=== PATIENT | male | born 1945 | race African-American/Black ===

== ENCOUNTER 2017-12-11 08:56 | Observation (INO) ==
[2017-12-11] MEDS ORDERED: 0.9 % Sodium Chloride 1,000 ML IVC ONE (09:12)
--- NOTE | 2017-12-11 09:24 | Emergency Department Note ---
Disposition Clinical Impression: Prostate cancer, Syncope and collapse, Lung nodule Hypertension Qualifiers: Hypertension type: unspecified Qualified Code(s): I10 - Essential (primary) hypertension Disposition: Admitted As Inpatient Condition: Fair Time of Disposition: 12:37 Syncope HPI - General Chief Complaint: ED Syncope Stated Complaint: Passed Out Time Seen by Provider: 12/11/17 09:10 Source: patient, family, EMS Limitations: no limitations Nursing Notes Reviewed: Yes Vital Signs Reviewed: Yes - History of Present Illness HPI Narrative: 72-year-old male history of hypertension on atenolol, prostate cancer and radiation treatments, has had 30 treatments. Treatment today, he was at the gym today after he had run around the treadmill, he went down to weight machine and was doing push Downs, then he passed out. His was nearby and she came over and they were laying him down on the ground, she thinks he was unconscious for maybe 30 seconds to minute. He denies any chest pain but when he will when he sat back up he was very dizzy and lightheaded. He denies history of any similar episodes. Denies any chest pain at this time or abdominal pain. Pt Subjective Complaint: loss of consciousness Onset (ago): hour(s) Number of episodes: 1 Duration: second(s) Prodromal Symptoms: lightheaded Witnessed: yes - by bystander Context: during exertion Injuries Sustained Associated with Event: none Current Symptoms: lightheaded History: none Treatments prior to arrival: none Associated trauma secondary to event: Yes - Related Data Home Medications Medication Instructions Recorded Confirmed Amlodipine Besylate 10 mg PO DAILY 07/02/17 12/11/17 Atenolol [Tenormin] 25 mg PO DAILY 07/02/17 12/11/17 Lisinopril [Zestril] 40 mg PO DAILY 07/02/17 12/11/17 Naproxen Sodium [Aleve] 220 mg PO AD PRN 07/02/17 12/11/17 Calcium Polycarbophil [Fiber 625 mg PO DAILY 12/11/17 12/11/17 Laxative] Previous Rx's Medication Instructions Recorded Bisacodyl [Dulcolax] 10 mg PO DAILY #2 tablet 10/17/17 Venlafaxine XR (24 HR) [Effexor XR] 75 mg PO DAILY #30 cap.er.24h 10/23/17 Vitamin E 1,000 unit PO DAILY #30 capsule 11/13/17 Allergies Allergy/AdvReac Type Severity Reaction Status Date / Time No Known Allergies Allergy Verified 07/02/17 13:08 All systems ED: reviewed and negative except as stated. Review of Systems: As Per HPI Constitutional: Denies: fever Eyes: Denies: eye pain ENT ED: Denies: ear pain Cardiovascular: Denies: chest pain Respiratory: Denies: cough Gastrointestinal: Denies: abdominal pain, nausea Genitourinary: Denies: urgency Musculoskeletal: Denies: back pain, neck pain Integumentary: Denies: rash Neurological: Reports: as per HPI. Denies: headache, weakness Psychiatric: Denies: anxiety Endocrine: Denies: fatigue Past Medical History - Past Medical History Attestation: Yes The following information was validated with the patient. Source: patient Medical history: Reports: hypertension, kidney stones Psychiatric history: Reports: no psych history - Social History Smoking Status: Never smoker Smokeless Tobacco Status: No Alcohol use: Reports: none Drug use: Reports: none Physical Exam Constitutional: NAD, sinus bradycardia Eyes: PERRLA, sclera anicteric ENT & Mouth: MMM Neck: normal inspection, neck is supple Resp: CTA bilaterally, no resp distress CV: bradycardia no murmurs no peripheral edema GI: normal inspection, soft, no guarding or rigidity Neuro: A&O3, CNII-XII grossly intact, BEAVERS Skin: on limited exam, skin intact with no rashes or lesions - General Limitations: no limitations General appearance: alert Course Course Narrative: 72-year-old male with hypertension and prostate cancer with radiation treatments had a syncopal episode no trauma, was lowered to the ground, but he is sinus bradycardia, after a few minutes, he actually gets diaphoretic and is heart rate and blood pressure dropped into the 90s systolic and heart rate into the 40s and 50s, it appears to be sinus bradycardia with no block, but will give basic lab work CBC BMP, pads on the patient's chest, also d-dimer given syncope basic lab work. - Reevaluation(s) Reevaluation #1: 72-year-old male with syncope, symptomatically bradycardia, EKG with subtle ischemic changes, troponin negative, sentences episode of near-syncope in the emergency department and bradycardia, his heart rate about 61 blood pressures been stable, patient is in no acute distress with cardiac pads on, given elevated d-dimer 15,000 with a was likely reactive or secondary to radiation, the patient did get a CTA that was negative for pulmonary embolus, but with concerns for 2 episodes of syncope in a 72-year-old gentleman further workup was indicated patient was admitted to in stable condition Time: 12:36 Vital Signs Temperature 98.6 F 12/11/17 09:01 Pulse Rate 65 12/11/17 09:01 Respiratory Rate 16 12/11/17 09:01 Blood Pressure 121/77 12/11/17 09:01 O2 Sat by Pulse Oximetry 100 12/11/17 09:01 Temperature 98.6 F 12/11/17 09:01 Pulse Rate 74 12/11/17 11:56 Respiratory Rate 74 12/11/17 11:56 Blood Pressure 110/68 12/11/17 11:56 O2 Sat by Pulse Oximetry 97 12/11/17 11:56 Oxygen Delivery Oxygen Delivery Room Air Syncope - Differential Diagnosis Likely: pulmonary embolism, dehydration/metabolic disorder, trauma secondary to event - Medical Records Medical records reviewed: Yes I reviewed the patient's medical records. - Lab Data Lab results reviewed: Yes I reviewed the patient's lab results. Result diagrams: 12/11/17 09:25 12/11/17 09:25 Lab Results 12/11/17 12/11/17 12/11/17 Range/Units 09:04 09:25 09:25 WBC 6.2 (4.3-11.1) K/mcL RBC 4.61 (4.19-5.50) M/mcL Hgb 14.2 (12.9-16.9) g/dL Hct 42.4 (37.5-50.1) % MCV 92.0 (83.0-100.0) fL MCH 30.8 (28.0-33.3) pg MCHC 33.5 (31.6-35.5) g/dL RDW 13.2 (11.5-14.5) % Plt Count 214 (140-400) K/mcL MPV 8.8 L (9.4-12.4) fL Immature Gran % 0.3 (0-4) % Seg Neutrophils % 75.8 % Lymphocytes % 15.6 % Monocytes % 7.3 % Eosinophils % 0.8 % Basophils % 0.2 % Neutrophils # 4.7 (1.6-8.9) K/mcL Lymphocytes # 1.0 (0.6-4.6) K/mcL Monocytes # 0.5 (0.0-1.3) K/mcL Eosinophils # 0.1 (0.0-0.6) K/mcL Basophils # 0.0 (0.0-0.2) K/mcL D-Dimer (0-500) ng/mLFEU Sodium 141 (136-145) mEq/L Potassium 4.4 (3.5-5.1) mEq/L Chloride 110 H (98-107) mEq/L Carbon Dioxide 22 L (23-29) mEq/L BUN 24 H (8-23) mg/dL Creatinine 1.10 (0.70-1.30) mg/dL Est GFR ( Amer) > 60 (> 60) Est GFR (Non-Af Amer) > 60 (> 60) BUN/Creatinine Ratio 22 (6-26) Glucose 122 H (70-105) mg/dL POC Glucose 96 H (58-89) Calculated Osmolality 297 (280-300) Calcium 9.3 (8.6-10.3) mg/dL Total Bilirubin 0.5 (0.3-1.0) mg/dL AST 17 (13-39) Units/L ALT 14 (7-52) Units/L Alkaline Phosphatase 55 (34-104) Units/L Troponin I (< 0.04) ng/mL Serum Total Protein 7.2 (6.4-8.9) g/dL Albumin 3.9 (3.5-5.7) g/dL Globulin 3.3 (2.4-3.5) g/dL Albumin/Globulin Ratio 1.2 (1.1-2.2) 12/11/17 12/11/17 Range/Units 09:25 09:25 WBC (4.3-11.1) K/mcL RBC (4.19-5.50) M/mcL Hgb (12.9-16.9) g/dL Hct (37.5-50.1) % MCV (83.0-100.0) fL MCH (28.0-33.3) pg MCHC (31.6-35.5) g/dL RDW (11.5-14.5) % Plt Count (140-400) K/mcL MPV (9.4-12.4) fL Immature Gran % (0-4) % Seg Neutrophils % % Lymphocytes % % Monocytes % % Eosinophils % % Basophils % % Neutrophils # (1.6-8.9) K/mcL Lymphocytes # (0.6-4.6) K/mcL Monocytes # (0.0-1.3) K/mcL Eosinophils # (0.0-0.6) K/mcL Basophils # (0.0-0.2) K/mcL D-Dimer 08487 H (0-500) ng/mLFEU Sodium (136-145) mEq/L Potassium (3.5-5.1) mEq/L Chloride (98-107) mEq/L Carbon Dioxide (23-29) mEq/L BUN (8-23) mg/dL Creatinine (0.70-1.30) mg/dL Est GFR ( Amer) (> 60) Est GFR (Non-Af Amer) (> 60) BUN/Creatinine Ratio (6-26) Glucose (70-105) mg/dL POC Glucose (58-89) Calculated Osmolality (280-300) Calcium (8.6-10.3) mg/dL Total Bilirubin (0.3-1.0) mg/dL AST (13-39) Units/L ALT (7-52) Units/L Alkaline Phosphatase (34-104) Units/L Troponin I < 0.03 (< 0.04) ng/mL Serum Total Protein (6.4-8.9) g/dL Albumin (3.5-5.7) g/dL Globulin (2.4-3.5) g/dL Albumin/Globulin Ratio (1.1-2.2) - Radiology Data Radiology results reviewed: Yes I reviewed the patient's radiology results. Chest X-Ray 12/11/17 09:12 IMPRESSION: 1. No active pulmonary disease. D/ / Jason Silvestre MD / Jason Silvestre MD Interpreting Provider: Jason Silvestre MD Head CT 12/11/17 09:13 IMPRESSION: No acute intracranial abnormality. Diffuse atrophic changes with findings suggesting chronic microvascular ischemia D/ / Atif Husain MD / Atif Husain MD Interpreting Provider: Atif Husain MD Chest CTA 12/11/17 10:40 IMPRESSION: No evidence of pulmonary embolism or acute pulmonary abnormality. Stable multiple noncalcified pulmonary nodules to the right lung with largest measuring 6 mm. These are unchanged since 10/22/2017. Reference Fleischner Society guidelines outlined below for management recommendations. RECOMMENDATIONS: Fleischner Society guidelines for follow-up and management of incidentally detected pulmonary nodules: Multiple Solid Nodules: Nodule size equals 6-8 mm In a low-risk patient, CT at 3-6 months, then consider CT at 18-24 months. In a high-risk patient, CT at 3-6 months, then CT at 18-24 months. - Low risk patients include individuals with minimal or absent history of smoking and other known risk factors. - High risk patients include individuals with a history or smoking or known risk factors. Radiology 2017 http://pubs.rsna.org/doi/full/10.1148/radiol.[email or web address] D/ / 12/11/2017 11:44:07 Hieu Baires MD / leon Interpreting Provider: Hieu Baires MD - EKG Data EKG attestation: Yes I reviewed and interpreted this EKG. EKG shows normal: sinus rhythm Rate: normal (52 bpm NE 190 QRS 85 QTc 4:30)
[2017-12-11 09:34] LABS: Basophils % 0.2 %; Eosinophils # 0.1 K/mcL (0.0-0.6); Eosinophils % 0.8 %; Hematocrit 42.4 % (37.5-50.1); Hemoglobin 14.2 g/dL (12.9-16.9); Immature Granulocytes % 0.3 % (0-4); Lymphocytes % 15.6 %; Mean Corpuscular HGB Conc 33.5 g/dL (31.6-35.5); Mean Corpuscular Hemoglobin 30.8 pg (28.0-33.3); Mean Platelet Volume 8.8 fL (9.4-12.4); Monocytes # 0.5 K/mcL (0.0-1.3); Monocytes % 7.3 %; Neutrophils # 4.7 K/mcL (1.6-8.9); Platelet Count 214 K/mcL (140-400); Red Blood Count 4.61 M/mcL (4.19-5.50); Red Cell Distribution Width 13.2 % (11.5-14.5); Segmented Neutrophils % 75.8 %
--- NOTE | 2017-12-11 09:41 | Emergency Department Note ---
START Narrative - START START: I examined this patient and my medical decision-making was reviewed with the Resident Physician. I agree with the documented findings, disposition and treatment plan as described except to the extent set forth below. 72-year-old male presents emergency room for syncope. Patient has sickle episode while lifting weights at the gym this morning. Patient was seen here in the ER upon arrival. He had a another near syncopal episode while sitting in the bed in the ER. At that time, patient became bradycardic in the low 50s and he became hypotensive in the 80s. He was symptomatic and diaphoretic with this. His EKG showed some nonspecific changes in the lateral high lateral leads. Patient is on atenolol which could be contributing to his bradycardia. We will place him on the pacer pads. He is receiving IV fluid bolus. Patient will need to be admitted and will consult cardiology. He is not having any chest pain. He is being treated for active prostate cancer with radiation therapy. critical care time 35 min spent in management of symptomatic bradycardia and hypotension
[2017-12-11 09:50] LABS: Alanine Aminotransferase 14 Units/L (7-52); Albumin 3.9 g/dL (3.5-5.7); Albumin/Globulin Ratio 1.2 (1.1-2.2); Alkaline Phosphatase 55 Units/L (34-104); Aspartate Amino Transferase 17 Units/L (13-39); BUN/Creatinine Ratio 22 (6-26); Bilirubin,Total 0.5 mg/dL (0.3-1.0); Blood Urea Nitrogen 24 mg/dL (8-23); Calcium 9.3 mg/dL (8.6-10.3); Carbon Dioxide 22 mEq/L (23-29); Chloride 110 mEq/L (98-107); Globulin 3.3 g/dL (2.4-3.5); Glucose 122 mg/dL (70-105); Osmolality,Calculated 297 (280-300); Potassium 4.4 mEq/L (3.5-5.1); Sodium 141 mEq/L (136-145); Total Protein 7.2 g/dL (6.4-8.9); eGFR For African Americans > 60 (> 60); eGFR For Non-African Americans > 60 (> 60)
--- NOTE | 2017-12-11 13:16 | Internal Med History&Physical ---
Date of Encounter: 12/11/17 Time of Encounter: 13:12 Assessment and Plan (1) Hypertension Current visit: Yes Status: Chronic Chronic and appears to be well controlled resume his medication except for atenolol and decreased Norvasc dose Qualifiers: Hypertension type: essential hypertension Qualified Code(s): I10 - Essential (primary) hypertension (2) Prostate cancer Current visit: Yes Status: Acute Patient received radiation 30s cycle no acute issues (3) Syncope and collapse Current visit: Yes Status: Acute Syncope and collapse following exercise at the edge of his symptomatic bradycardia patient is on low doses of atenolol which is being held for now heart rate is back to normal with normal blood pressure was observed in overnight check a [facility] Internal Medicine - H&P: HPI Chief complaint: syncope Admitted From: Emergency Dept Plans for Post Hospital Care: Home History of present illness: Mr. Olivo is a 72 year old male Patient with history of hypertension, on atenolol 25 mg daily, lisinopril 40 mg and Norvasc 10 mg patient also has prostate cancer has had radiation therapy 30 cycles patient was at the gym this morning exercised on the treadmill after that he went over to lifting weight and then felt lightheaded. then passed out the EMS brought him to the emergency room EMS blood pressure recorded 90/40 in the emergency room patient became bradycardia heart rate in the 40s blood pressure low with lightheadedness and diaphoretic given IV fluid . By the time I saw him he was in normal sinus rhythm heart rate 68. Patient denies any chest pain no shortness of breath no prior cardiac event history. Patient will be admitted for observation discontinued the Actonel for now and give time for washout.. CTA of chest negative for PE Past Med Surg Social Fam HX - Past Medical History Medical history: hypertension, kidney stones Psychiatric history: no psych history - Social History Smoking Status: Never smoker Smokeless Tobacco Status: No Alcohol use: none Drug use: none Internal Medicine - H&P: Meds Amlodipine Besylate 10 mg PO DAILY 07/02/17 [History] Atenolol [Tenormin] 25 mg PO DAILY 07/02/17 [History] Lisinopril [Zestril] 40 mg PO DAILY 07/02/17 [History] Naproxen Sodium [Aleve] 220 mg PO AD PRN 07/02/17 [History] Bisacodyl [Dulcolax] 10 mg PO DAILY #2 tablet 10/17/17 [Rx] Venlafaxine XR (24 HR) [Effexor XR] 75 mg PO DAILY #30 cap.er.24h 10/23/17 [Rx] Vitamin E 1,000 unit PO DAILY #30 capsule 11/13/17 [Rx] Calcium Polycarbophil [Fiber Laxative] 625 mg PO DAILY 12/11/17 [History] 3 Allergy/AdvReac Type Severity Reaction Status Date / Time No Known Allergies Allergy Verified 07/02/17 13:08 All Systems PM: A 10-system review of systems was performed and is negative for pertinent findings except as documented above in the HPI. - Constitutional Constitutional: no chills, no fever(s), no night sweats - EENT Eyes: no change in vision, no discharge, no pain, no photophobia Ears: no ear discharge, no ear pain, no tinnitus Nose, mouth and throat: no dysphagia, no nasal discharge, no neck pain, no sore throat - Cardiovascular Cardiovascular ROS IM: syncope - Respiratory Respiratory: no cough, no dyspnea, no wheezing, no excessive phlegm production - Gastrointestinal Gastrointestinal: no abdominal pain, no diarrhea, no hematemesis, no hematochezia, no melena, no nausea, no vomiting - Musculoskeletal Musculoskeletal ROS IM: no numbness, no tingling - Constitutional Vitals: Temp Pulse Resp BP Pulse Ox 98.6 F 74 74 110/68 97 12/11/17 09:01 12/11/17 11:56 12/11/17 11:56 12/11/17 11:56 12/11/17 11:56 - Head Head exam: Present: atraumatic, normocephalic - Eye Eye exam: Present: PERRL, conjuntiva pink, sclera anicteric Pupils: Present: PERRL - Neck Neck exam general surgery: Present: supple, trachea midline. Absent: lymphadenopathy - Respiratory Respiratory exam: Present: CTAB. Absent: accessory muscle use, rales, rhonchi, wheezes - Cardiovascular Cardiovascular exam: Present: RRR, +S1, +S2. Absent: diastolic murmur, gallop, rubs, systolic murmur - GI/Abdominal GI/Abdominal exam: Present: normal bowel sounds, soft, no peritoneal signs. Absent: distended, tenderness - Extremities Exam Extremities exam: Present: warm, radial pulses palpable and symmetrical. Absent : calf tenderness, cyanotic, pedal edema - Neurological Exam Neurological exam: Present: CN II-XII intact, oriented X3, no focal deficits. Absent: pronater drift, facial droop, speech deficit - Skin Skin exam: Present: dry, intact Internal Med - H&P Results - Labs CBC & Chem 7: 12/11/17 09:25 12/11/17 09:25 Labs: Short CBC 12/11/17 Range/Units 09:25 WBC 6.2 (4.3-11.1) K/mcL Hgb 14.2 (12.9-16.9) g/dL Hct 42.4 (37.5-50.1) % Plt Count 214 (140-400) K/mcL Neutrophils # 4.7 (1.6-8.9) K/mcL BMP 12/11/17 09:25 Sodium 141 Potassium 4.4 Chloride 110 H Carbon Dioxide 22 L BUN 24 H Creatinine 1.10 Glucose 122 H Calcium 9.3 Cardiac Enzymes 12/11/17 Range/Units 09:25 Troponin I < 0.03 (< 0.04) ng/mL Liver Function 12/11/17 Range/Units 09:25 Total Bilirubin 0.5 (0.3-1.0) mg/dL AST 17 (13-39) Units/L ALT 14 (7-52) Units/L Alkaline Phosphatase 55 (34-104) Units/L Albumin 3.9 (3.5-5.7) g/dL - Impressions ITS Impressions Chest X-Ray 12/11/17 09:12 IMPRESSION: 1. No active pulmonary disease. D/ / Jason Silvestre MD / Jason Silvestre MD Interpreting Provider: Jason Silvestre MD Head CT 12/11/17 09:13 IMPRESSION: No acute intracranial abnormality. Diffuse atrophic changes with findings suggesting chronic microvascular ischemia D/ / Atif Husain MD / Atif Husain MD Interpreting Provider: Atif Husain MD Chest CTA 12/11/17 10:40 IMPRESSION: No evidence of pulmonary embolism or acute pulmonary abnormality. Stable multiple noncalcified pulmonary nodules to the right lung with largest measuring 6 mm. These are unchanged since 10/22/2017. Reference Fleischner Society guidelines outlined below for management recommendations. RECOMMENDATIONS: Fleischner Society guidelines for follow-up and management of incidentally detected pulmonary nodules: Multiple Solid Nodules: Nodule size equals 6-8 mm In a low-risk patient, CT at 3-6 months, then consider CT at 18-24 months. In a high-risk patient, CT at 3-6 months, then CT at 18-24 months. - Low risk patients include individuals with minimal or absent history of smoking and other known risk factors. - High risk patients include individuals with a history or smoking or known risk factors. Radiology 2017 http://pubs.rsna.org/doi/full/10.1148/radiol.0000195537 D/ / 12/11/2017 11:44:07 Hieu Baires MD / leon Interpreting Provider: Hieu Baires MD
[2017-12-11] MEDS ORDERED: Naloxone 0.4 MG/ML INJ IVP PRN (13:22)
[2017-12-11] MEDS: 0.9 % Sodium Chloride 1,000 ML IVC SCH (13:52)
[2017-12-12 01:06] LABS: Basophils % 0.2 %; Eosinophils # 0.1 K/mcL (0.0-0.6); Eosinophils % 2.3 %; Hematocrit 35.5 % (37.5-50.1); Immature Granulocytes % 0.5 % (0-4); Lymphocytes # 0.9 K/mcL (0.6-4.6); Mean Corpuscular HGB Conc 33.5 g/dL (31.6-35.5); Mean Corpuscular Volume 92.4 fL (83.0-100.0); Monocytes # 0.3 K/mcL (0.0-1.3); Monocytes % 7.7 %; Platelet Count 164 K/mcL (140-400); Red Blood Count 3.84 M/mcL (4.19-5.50); Red Cell Distribution Width 13.3 % (11.5-14.5); Segmented Neutrophils % 68.3 %
[2017-12-12 01:10] LABS: Hemoglobin 11.9 g/dL (12.9-16.9)
[2017-12-12 01:34] LABS: Alanine Aminotransferase 13 Units/L (7-52); Albumin 3.6 g/dL (3.5-5.7); Albumin/Globulin Ratio 1.2 (1.1-2.2); Alkaline Phosphatase 51 Units/L (34-104); Aspartate Amino Transferase 17 Units/L (13-39); BUN/Creatinine Ratio 21 (6-26); Bilirubin,Total 0.5 mg/dL (0.3-1.0); Blood Urea Nitrogen 20 mg/dL (8-23); Calcium 8.9 mg/dL (8.6-10.3); Carbon Dioxide 25 mEq/L (23-29); Chloride 110 mEq/L (98-107); Chol/HDL Ratio 3.4 (0-4.9); Cholesterol 165 mg/dL (< 200); Glucose 93 mg/dL (70-105); HDL Cholesterol 48 mg/dL (40-59); LDL Cholesterol,Calculated 98 mg/dL (0-99); Osmolality,Calculated 294 (280-300); Potassium 3.8 mEq/L (3.5-5.1); Sodium 141 mEq/L (136-145); Total Protein 6.6 g/dL (6.4-8.9); Triglycerides 93 mg/dL (< 150); eGFR For African Americans > 60 (> 60); eGFR For Non-African Americans > 60 (> 60)
[2017-12-12] MEDS: 0.9 % Sodium Chloride 1,000 ML IVC SCH (03:02)
[2017-12-12] MEDS ORDERED: amLODIPine 5 MG TABLET PO SCH (09:00)
[2017-12-12] MEDS ORDERED: Lisinopril 20 MG TABLET PO SCH (09:00)
[2017-12-12] MEDS ORDERED: Venlafaxine XR (24 HR) 75 MG CAP.ER.24H PO SCH (09:00)
[2017-12-12 13:27] VITALS: BP 188/83
[2017-12-12] MEDS ORDERED: amLODIPine 5 MG TABLET PO ONE (13:30)
--- NOTE | 2017-12-12 13:42 | Electrocardiograph Report ---
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
--- NOTE | 2017-12-12 13:49 | Internal Med Progress Note ---
Date of Encounter: 12/12/17 Time of Encounter: 12:36 - Assessment and plan (1) Syncope and collapse Current Visit: Yes Status: Resolved Assessment and plan: Hypotension/Bradycardia likely secondary to BB BB has been discontinued pt noted to be hypertensive at this time clinically asymptomatic (2) Hypertension Current Visit: Yes Status: Chronic Assessment and plan: Noted to be hypertensive increased Amlodipine to 10mg PO qd continue lisinopril 40mg PO qd will closely monitor BP Qualifiers: Hypertension type: essential hypertension Qualified Code(s): I10 - Essential (primary) hypertension (3) DVT prophylaxis Current Visit: Yes Status: Acute Assessment and plan: Heparin SQ - Subjective Interval history: Patient seen and examined with family present at bedside. Pt denies any discomfort however noted to have BP of 188/83 he is to receive another dose of Norvasc 5mg PO Atenolol on hold Pt adamant about leave despite elevated BP readings. He is threatening to leave AMA if he is not discharged at this time. Pt educated about the need to have better BP control prior to discharge. - Constitutional Vitals: Temp Pulse Resp BP Pulse Ox 97.9 F 87 16 188/83 99 12/12/17 13:00 12/12/17 13:00 12/12/17 13:00 12/12/17 13:00 12/12/17 13:00 General appearance: Present: A&O X 3, no acute distress, answers questions appropriately - Head Head exam: Present: atraumatic, normocephalic - Eye Eye exam: Present: conjuntiva pink, sclera anicteric - Respiratory Respiratory exam: Present: CTAB. Absent: accessory muscle use, rales, rhonchi, wheezes - Cardiovascular Cardiovascular exam: Present: RRR, +S1, +S2. Absent: diastolic murmur, gallop, rubs, systolic murmur - GI/Abdominal GI/Abdominal exam: Present: normal bowel sounds, soft, no peritoneal signs. Absent: distended, tenderness - Extremities Exam Extremities exam: Present: warm, radial pulses palpable and symmetrical. Absent : calf tenderness, pedal edema - Neurological Exam Neurological exam: Present: alert, oriented X3 - Psychiatric Psychiatric exam: Present: normal affect, normal mood Internal Medicine: Result - Labs CBC & Chem 7: 12/12/17 00:54 12/12/17 00:54 Labs: Short CBC 12/12/17 Range/Units 00:54 WBC 4.4 (4.3-11.1) K/mcL Hgb 11.9 L D (12.9-16.9) g/dL Hct 35.5 L (37.5-50.1) % Plt Count 164 (140-400) K/mcL Neutrophils # 3.0 (1.6-8.9) K/mcL BMP 12/12/17 00:54 Sodium 141 Potassium 3.8 Chloride 110 H Carbon Dioxide 25 BUN 20 Creatinine 0.94 Glucose 93 Calcium 8.9 Cardiac Enzymes 12/11/17 12/11/17 12/12/17 Range/Units 14:56 21:06 00:54 Troponin I < 0.03 < 0.03 < 0.03 (< 0.04) ng/mL Liver Function 12/12/17 Range/Units 00:54 Total Bilirubin 0.5 (0.3-1.0) mg/dL AST 17 (13-39) Units/L ALT 13 (7-52) Units/L Alkaline Phosphatase 51 (34-104) Units/L Albumin 3.6 (3.5-5.7) g/dL - ABG Interpretation ABG results: PT/INR, D-dimer D-Dimer 69223 ng/mLFEU (0-500) H 12/11/17 09:25 Consult Discharge Plan - Plan Referrals: Sotero Lizama MD [Primary Care Provider] - 12/17/17 2:15 pm (Please follow up as schedule...)
[2017-12-12] MEDS ORDERED: *HR* Heparin 5,000 UNIT/ML VIAL SQ SCH (18:00)
[2017-12-13] MEDS ORDERED: amLODIPine 5 MG TABLET PO SCH (09:00)
== END 2017-12-12 14:00 | disposition home or self-care (01) ==
LOC: 2ANU 08:56 → EMEROO 08:56 → 2ANU 13:16
PROVIDERS: ADMIT Internal Medicine Cardiovascular Disease; ATTEND Internal Medicine